=== PATIENT | male | born 1960 | race Caucasian/White ===

== ENCOUNTER → 2020-10-10 | Outpatient (CLI) | payer OTHER ==
[~2020-10-10] MED LIST: ASPIR 8181 MG PO; BACTRIM DS TAB1 EACH PO; BISOPROLOL-HCT1 EAC1 PO; CEPHALEXIN500 MG PO; CO Q-10100 MG PO; DICYCLOMINE HCL10 MG PO; FISH OIL 1,2001 EAC1 PO; FLOMAX0.4 MG PO; GLUCOSAMINE 1,1 EACH PO; LEVOTHYROXINE137 MCG PO; PANTOPRAZOLE SO40 MG PO; PRAVASTATIN SOD10 MG PO; TAMOXIFEN CITRA10 MG PO; TERBINAFINE HC250 MG PO; TESTOSTERO200 MG/1 M INJ; TYLENOL WITH C1 EACH PO; VITAMIN B COMP1 EACH PO
== END ==
LOC: RAD 14:53
PROVIDERS: ATTEND Family Medicine
DX: R06.02 Shortness of breath (principal); R09.89 Other specified symptoms and signs involving the circulatory and respiratory systems
CPT/HCPCS: 71046